=== PATIENT | male | born 1950 | race Caucasian/White ===

== ENCOUNTER 2018-02-14 13:04 | Day surgery (SDC) | payer MEDICARE, OTHER ==
[~2018-02-14] VITALS: Ht 180.3 cm; Wt 112.2 kg
[~2018-02-14 13:04] MED LIST: CIPR500 PO; CITA20 PO; FINA5 PO; FISH1000 PO; GLUCOSAMIN PO; MSM PO; MULTIVITAMIN PO; OXYACE5T PO; Pyridium100 MG PO; RAPAFLO 8MG PO; TRAZ50 PO
== END 2018-02-14 16:37 | disposition home or self-care (01) ==
LOC: ORSCSDS 13:04
PROVIDERS: Internal Medicine Gastroenterology
PROC: 0DJD8ZZ Inspection of Lower Intestinal Tract, Via Natural or Artificial Opening Endoscopic (ICD-10-PCS; principal; 2018-02-14 14:30)
DX: Z12.11 Encounter for screening for malignant neoplasm of colon (principal); K57.30 Diverticulosis of large intestine without perforation or abscess without bleeding; Z80.0 Family history of malignant neoplasm of digestive organs; Z86.010 Personal history of colon polyps; E78.5 Hyperlipidemia, unspecified; F32.9 Major depressive disorder, single episode, unspecified; Z79.899 Other long term (current) drug therapy
CPT/HCPCS: J7120

== ENCOUNTER 2018-11-27 15:48 | Emergency (ER) | payer OTHER, MEDICARE ==
[~2018-11-27] VITALS: Ht 182.9 cm; Wt 114.3 kg
[~2018-11-27 15:48] MED LIST changes: +ERGO400 PO; +HYDR1TAB94 PO; +NAPR220 PO; +PROM25 PO
[2018-11-27] MEDS ORDERED: Robaxin-750750 MG PO (17:26)
[2018-11-27] MEDS ORDERED: LIDO700A20 TOP (17:26)
== END 2018-11-27 17:34 | disposition home or self-care (01) ==
LOC: ER 15:48
DX: S06.9X0A Unspecified intracranial injury without loss of consciousness, initial encounter (principal); S30.0XXA Contusion of lower back and pelvis, initial encounter; S00.01XA Abrasion of scalp, initial encounter; V47.6XXA Car passenger injured in collision with fixed or stationary object in traffic accident, initial encounter; Z79.899 Other long term (current) drug therapy; Z87.891 Personal history of nicotine dependence
CPT/HCPCS: 99283

== ENCOUNTER → 2019-02-06 | Outpatient (CLI) | payer MEDICARE, OTHER ==
[~2019-02-06] MED LIST changes: +LIDO700A20 TOP; +Robaxin-750750 MG PO
[2019-02-06 10:14] LABS: Creatinine Urine 91.9 mg/dL (27.00-270.00)
[2019-02-06 10:21] LABS: Calcium, Urine 18.8 mg/dL (< 17.5)
== END | disposition home or self-care (01) ==
LOC: LAB 08:55 → LAB SHORT 08:55
PROVIDERS: Internal Medicine Endocrinology, Diabetes & Metabolism
DX: E21.0 Primary hyperparathyroidism (principal)
CPT/HCPCS: 81050; 82340; 82570